=== PATIENT | female | born 1985 | race Caucasian/White ===

== ENCOUNTER 2018-08-26 06:37 | Emergency (ER) | payer OTHER ==
[2018-08-26 07:24] LABS: Basophils % (Auto) 0.4 % (0.0-1.8); Eosinophils % (Auto) 0.5 % (0.0-4.3); Hematocrit 39.3 % (30.3-42.9); Hemoglobin 13.6 gm/dl (10.1-14.3); Lymphocytes # (Auto) 1.6 K/mm3 (1.2-5.4); Lymphocytes % (Auto) 23.1 % (13.4-35.0); Mean Corpuscular HGB Conc 35 % (30-34); Mean Corpuscular Volume 95 fl (79-97); Monocytes # (Auto) 0.6 K/mm3 (0.0-0.8); Monocytes % (Auto) 8.5 % (0.0-7.3); Platelet Count 229 K/mm3 (140-440); Red Blood Count 4.14 M/mm3 (3.65-5.03); Red Cell Distribution Width 12.9 % (13.2-15.2)
[2018-08-26 07:39] LABS: Bilirubin,Urine NEG (Negative); Blood,Urine MOD (Negative); Color,Urine Yellow (Yellow); Mucus,Urine 1+ /HPF; Protein,Urine <15 mg/dL mg/dL (Negative); Urobilinogen,Urine < 2.0 mg/dL (<2.0)
[2018-08-26 07:41] LABS: BUN/Creatinine Ratio 16; Blood Urea Nitrogen 8 mg/dL (7-17); Calcium 9.3 mg/dL (8.4-10.2); Hemolysis Index 14
--- NOTE | 2018-08-26 08:55 | Emergency Department Report ---
<DOTTIE LINTON - Last Filed: 08/26/18 11:27> ED HPI - General Chief complaint: Vaginal Bleeding Stated complaint: VAGINAL BLEEDING Time Seen by Provider: 08/26/18 08:13 Source: patient Mode of arrival: Ambulatory Limitations: No Limitations - History of Present Illness Initial comments: lmp 3/5 here with vag bleeding and abdominal cramping thc cig etoh here in [place] requesting control odd affect MD Complaint: vaginal bleeding -: days(s) Severity: mild Quality: cramping Consistency: intermittent Associated symptoms: vaginal bleeding Vaginal bleeding: light :: Yes - Related Data Previous Rx's Medication Instructions Recorded Last Taken Type Gentamicin 0.3% Ophth Soln 2 drops OD Q4H #1 bottle 08/26/18 Unknown Rx Min Oil/Petrolatum [Artificial 1 applicatio OP QID PRN #1 tube 08/26/18 Unknown Rx Tears] Ofloxacin 0.3% [Ocuflox] 1 drops OU QID #1 bottle 08/26/18 Unknown Rx Allergies Allergy/AdvReac Type Severity Reaction Status Date / Time No Known Allergies Allergy Unverified 05/22/18 07:31 ED Review of Systems Comment: All other systems reviewed and negative Constitutional: denies: chills Eyes: denies: eye pain ENT: denies: throat pain Respiratory: denies: cough Cardiovascular: denies: palpitations Endocrine: denies: flushing Gastrointestinal: denies: abdominal pain Genitourinary: as per HPI Musculoskeletal: denies: back pain Skin: denies: rash Neurological: denies: weakness Psychiatric: denies: anxiety Hematological/Lymphatic: denies: easy bleeding ED Past Medical Hx - Past Medical History Previous Medical History?: No - Surgical History Past Surgical History?: No - Family History Family history: no significant - Social History Smoking Status: Current Every Day Smoker Substance Use Type: Alcohol, Marijuana - Medications Home Medications: Home Medications Medication Instructions Recorded Confirmed Last Taken Type Gentamicin 0.3% Ophth Soln 2 drops OD Q4H #1 bottle 08/26/18 Unknown Rx Min Oil/Petrolatum [Artificial 1 applicatio OP QID PRN #1 tube 08/26/18 Unknown Rx Tears] Ofloxacin 0.3% [Ocuflox] 1 drops OU QID #1 bottle 08/26/18 Unknown Rx ED Physical Exam - General Limitations: No Limitations General appearance: alert - Head Head exam: Present: atraumatic - Eye Eye exam: Present: normal appearance - ENT ENT exam: Present: mucous membranes moist - Neck Neck exam: Present: normal inspection - Respiratory Respiratory exam: Present: normal lung sounds bilaterally - GI/Abdominal GI/Abdominal exam: Present: soft, normal bowel sounds - Rectal Rectal exam: Present: deferred - Extremities Exam Extremities exam: Present: normal inspection - Back Exam Back exam: Present: normal inspection, full ROM - Neurological Exam Neurological exam: Present: alert, oriented X3, CN II-XII intact - Psychiatric Psychiatric exam: Present: normal mood. Absent: normal affect ED Medical Decision Making - Lab Data Result diagrams: 08/26/18 07:12 08/26/18 07:12 - Radiology Data Radiology results: image reviewed - Medical Decision Making Laboratory Results - last 24 hr 08/26/18 08/26/18 08/26/18 07:12 07:12 07:12 WBC 6.9 RBC 4.14 Hgb 13.6 Hct 39.3 MCV 95 MCH 33 H MCHC 35 H RDW 12.9 L Plt Count 229 Lymph % (Auto) 23.1 [place] % (Auto) 8.5 H Eos % (Auto) 0.5 Baso % (Auto) 0.4 Lymph # 1.6 [place] # 0.6 Eos # 0.0 Baso # 0.0 Seg Neutrophils % 67.5 Seg Neutrophils # 4.6 Sodium 137 Potassium 3.8 Chloride 105.2 Carbon Dioxide 20 L Anion Gap 16 BUN 8 Creatinine 0.5 L Estimated GFR > 60 BUN/Creatinine Ratio 16 Glucose 91 Calcium 9.3 HCG, Quant 64058 H Urine Color Urine Turbidity Urine pH Ur Specific [place] Urine Protein Urine Glucose (UA) Urine Ketones Urine Blood Urine Nitrite Urine Bilirubin Urine Urobilinogen Ur Leukocyte Esterase Urine WBC (Auto) Urine RBC (Auto) U Epithel Cells (Auto) Urine Mucus Blood Type 08/26/18 08/26/18 07:19 09:07 WBC RBC Hgb Hct MCV MCH MCHC RDW Plt Count Lymph % (Auto) [place] % (Auto) Eos % (Auto) Baso % (Auto) Lymph # [place] # Eos # Baso # Seg Neutrophils % Seg Neutrophils # Sodium Potassium Chloride Carbon Dioxide Anion Gap BUN Creatinine Estimated GFR BUN/Creatinine Ratio Glucose Calcium HCG, Quant Urine Color Yellow Urine Turbidity Clear Urine pH 6.0 Ur Specific [place] 1.026 Urine Protein <15 mg/dl Urine Glucose (UA) Neg Urine Ketones Neg Urine Blood Mod Urine Nitrite Neg Urine Bilirubin Neg Urine Urobilinogen < 2.0 Ur Leukocyte Esterase Neg Urine WBC (Auto) 1.0 Urine RBC (Auto) 5.0 U Epithel Cells (Auto) 5.0 Urine Mucus 1+ Blood Type O NEGATIVE US PENDING o neg blood type- ED Disposition Clinical Impression: Threatened miscarriage Disposition: DC-01 TO HOME OR SELFCARE Is pt being admited?: No Does the pt Need Aspirin: No Condition: Stable Prescriptions: Min Oil/Petrolatum [Artificial Tears] 1 applicatio OP QID PRN #1 tube PRN Reason: Itching Gentamicin 0.3% Ophth Soln 2 drops OD Q4H #1 bottle Ofloxacin 0.3% [Ocuflox] 1 drops OU QID #1 bottle Referrals: DOROTHEA MARTINS MD [Staff Physician] - 3-5 Days Forms: Work/School Release Form(ED) <LUCILLE BENOIT - Last Filed: 08/26/18 12:52> ED Review of Systems ROS: Stated complaint: VAGINAL BLEEDING Other details as noted in HPI ED Medical Decision Making - Lab Data Result diagrams: 08/26/18 07:12 08/26/18 07:12 Lab Results 08/26/18 08/26/18 08/26/18 Range/Units 07:12 07:12 07:12 WBC 6.9 (4.5-11.0) K/mm3 RBC 4.14 (3.65-5.03) M/mm3 Hgb 13.6 (10.1-14.3) gm/dl Hct 39.3 (30.3-42.9) % MCV 95 (79-97) fl MCH 33 H (28-32) pg MCHC 35 H (30-34) % RDW 12.9 L (13.2-15.2) % Plt Count 229 (140-440) K/mm3 Lymph % (Auto) 23.1 (13.4-35.0) % [place] % (Auto) 8.5 H (0.0-7.3) % Eos % (Auto) 0.5 (0.0-4.3) % Baso % (Auto) 0.4 (0.0-1.8) % Lymph # 1.6 (1.2-5.4) K/mm3 [place] # 0.6 (0.0-0.8) K/mm3 Eos # 0.0 (0.0-0.4) K/mm3 Baso # 0.0 (0.0-0.1) K/mm3 Seg Neutrophils % 67.5 (40.0-70.0) % Seg Neutrophils # 4.6 (1.8-7.7) K/mm3 Sodium 137 (137-145) mmol/L Potassium 3.8 (3.6-5.0) mmol/L Chloride 105.2 (98-107) mmol/L Carbon Dioxide 20 L (22-30) mmol/L Anion Gap 16 mmol/L BUN 8 (7-17) mg/dL Creatinine 0.5 L (0.7-1.2) mg/dL Estimated GFR > 60 ml/min BUN/Creatinine Ratio 16 % Glucose 91 (65-100) mg/dL Calcium 9.3 (8.4-10.2) mg/dL HCG, Quant 62497 H (0-4) mIU/mL Urine Color (Yellow) Urine Turbidity (Clear) Urine pH (5.0-7.0) Ur Specific [place] (1.003-1.030) Urine Protein (Negative) mg/dL Urine Glucose (UA) (Negative) mg/dL Urine Ketones (Negative) mg/dL Urine Blood (Negative) Urine Nitrite (Negative) Urine Bilirubin (Negative) Urine Urobilinogen (<2.0) mg/dL Ur Leukocyte Esterase (Negative) Urine WBC (Auto) (0.0-6.0) /HPF Urine RBC (Auto) (0.0-6.0) /HPF U Epithel Cells (Auto) (0-13.0) /HPF Urine Mucus /HPF Blood Type 08/26/18 08/26/18 Range/Units 07:19 09:07 WBC (4.5-11.0) K/mm3 RBC (3.65-5.03) M/mm3 Hgb (10.1-14.3) gm/dl Hct (30.3-42.9) % MCV (79-97) fl MCH (28-32) pg MCHC (30-34) % RDW (13.2-15.2) % Plt Count (140-440) K/mm3 Lymph % (Auto) (13.4-35.0) % [place] % (Auto) (0.0-7.3) % Eos % (Auto) (0.0-4.3) % Baso % (Auto) (0.0-1.8) % Lymph # (1.2-5.4) K/mm3 [place] # (0.0-0.8) K/mm3 Eos # (0.0-0.4) K/mm3 Baso # (0.0-0.1) K/mm3 Seg Neutrophils % (40.0-70.0) % Seg Neutrophils # (1.8-7.7) K/mm3 Sodium (137-145) mmol/L Potassium (3.6-5.0) mmol/L Chloride (98-107) mmol/L Carbon Dioxide (22-30) mmol/L Anion Gap mmol/L BUN (7-17) mg/dL Creatinine (0.7-1.2) mg/dL Estimated GFR ml/min BUN/Creatinine Ratio % Glucose (65-100) mg/dL Calcium (8.4-10.2) mg/dL HCG, Quant (0-4) mIU/mL Urine Color Yellow (Yellow) Urine Turbidity Clear (Clear) Urine pH 6.0 (5.0-7.0) Ur Specific [place] 1.026 (1.003-1.030) Urine Protein <15 mg/dl (Negative) mg/dL Urine Glucose (UA) Neg (Negative) mg/dL Urine Ketones Neg (Negative) mg/dL Urine Blood Mod (Negative) Urine Nitrite Neg (Negative) Urine Bilirubin Neg (Negative) Urine Urobilinogen < 2.0 (<2.0) mg/dL Ur Leukocyte Esterase Neg (Negative) Urine WBC (Auto) 1.0 (0.0-6.0) /HPF Urine RBC (Auto) 5.0 (0.0-6.0) /HPF U Epithel Cells (Auto) 5.0 (0-13.0) /HPF Urine Mucus 1+ /HPF Blood Type O NEGATIVE Critical care attestation.: If time is entered above; I have spent that time in minutes in the direct care of this critically ill patient, excluding procedure time. ED Disposition Is pt being admited?: No Does the pt Need Aspirin: No Time of Disposition: 12:52
--- NOTE | 2018-08-26 12:34 | Ultrasound Report ---
ULTRASOUND OB LESS THAN 14 WEEKS - TRANSABDOMINAL AND TRANSVAGINAL INDICATION: , vaginal bleeding. COMPARISON: None similar. FINDINGS: Transabdominal and transvaginal pelvic sonography performed in this patient with LMP of 07/26/2018 and estimated menstrual age of 4 weeks and 3 days. It demonstrates an anteverted, gravid uterus estimated at 9.5 x 5.5 x 8.2 cm with a 0.3 cm yolk sac felt seen at this time. A clear pole not seen and heart rate not obtained. Mean gestational sac diameter of 1.3 cm may correspond to 6 weeks and 1 day. Approximately 2.3 x 0.8 x 1 cm heterogeneity adjacent to the gestational sac may represent subchorionic hemorrhage, endovaginal images 22-23. Bilaminar endometrial stripe thickness toward the fundus is approximately 2.2 cm, endovaginal image 4. Mild pelvic free fluid. Cervix appears closed. Approximately 4.9 x 4.8 cm fibroid suspected, endovaginal image 6. Right ovary is 5.6 x 2.1 x 3 cm with a small intrinsic cyst. Left ovary grossly unremarkable at 3.2 x 1.3 x 1.4 cm. CONCLUSION: 1. Presumed single intrauterine gestation with an ultrasound estimated age of 6 weeks and 1 day and FLORENCIO of 04/20/2019, though distinct pole with heart rate not identified at this time. Please also correlate clinically for approximately 2 weeks discrepancy with the LMP for the sonographic findings at this time may represent an early normal gestation versus an abnormal . Serial serum beta-hCGs suggested with followup in approximately 4 weeks to reassess for viability, if so warranted. 2. Other findings, including uterine fibroid, as above. Thank you for the opportunity to participate in this patient's care.
[2018-08-26 15:21] VITALS: BP 102/82
== END 2018-08-26 15:21 | disposition home or self-care (01) ==
LOC: ED 06:37
DX: O20.0 Threatened abortion (principal); Z3A.00 Weeks of gestation of pregnancy not specified
CPT/HCPCS: 36415; 76801; 76817; 80048; 81001; 84702; 85025; 86850; 86900; 86901; 96372; 99284; J2790